=== PATIENT | male | born 1965 | race Caucasian/White ===

== ENCOUNTER 2024-03-13 04:58 | Emergency (ER) | payer OTHER ==
[2024-03-13 05:04] VITALS: TEMP 98.1; BMI 28.1
[2024-03-13 06:30] LABS: PH,URINE 6.5 (5.0-8.0); URINE APPEARANCE CLEAR; URINE BILIRUBIN NEGATIVE (NEGATIVE); URINE COLOR YELLOW; URINE GLUCOSE (UA) NEGATIVE (NEGATIVE); URINE KETONE NEGATIVE (NEGATIVE); URINE LEUK ESTERASE NEGATIVE (NEGATIVE); URINE NITRITE NEGATIVE (NEGATIVE); URINE PROTEIN NEGATIVE (NEGATIVE); URINE UROBILINOGEN 0.2 mg/dL (0.2-1.0)
[2024-03-13 07:31] VITALS: BP 160/72; PULSE 72; RESP 16
== END 2024-03-13 07:34 | disposition home or self-care (01) ==
LOC: JER 04:58
PROC: 0T9B70Z Drainage of Bladder with Drainage Device, Via Natural or Artificial Opening (ICD-10-PCS; principal; 2024-03-13)
DX: R33.9 Retention of urine, unspecified (principal); R10.30 Lower abdominal pain, unspecified
CPT/HCPCS: 51702; 81003; 87086; 99283-25